=== PATIENT | female | born 1975 | race Caucasian/White ===

== ENCOUNTER 2024-10-28 09:59 | Emergency (ER) | payer BC ==
[~2024-10-28] VITALS: Ht 157.5 cm; Wt 49.9 kg
[2024-10-28 10:00] VITALS: TEMP 97.3
[2024-10-28 10:56] LABS: BASOPHILS % 1.0 % (0.0-1.0); EOSINOPHILS % 0.2 % (0.0-6.0); LYMPHOCYTES % 18.7 % (18.0-39.1); MONOCYTES % 7.6 % (4.4-11.3); NEUTROPHILS % 72.3 % (38.7-80.0); RED CELL DISTRIBUTION WIDTH 12.4 % (11.7-14.4)
[2024-10-28 11:25] LABS: EST GLOMERULAR FILTRATION RATE 85.0 ML/MIN (>=60)
[2024-10-28 12:51] VITALS: PULSE 55; RESP 18
[2024-10-28 13:16] VITALS: BP 146/83; PULSE 73; RESP 18; TEMP 98.4; O2SAT 99
== END 2024-10-28 13:18 | disposition home or self-care (01) ==
LOC: ER 10:06
DX: R55 Syncope and collapse (principal); R03.0 Elevated blood-pressure reading, without diagnosis of hypertension; F41.9 Anxiety disorder, unspecified; F17.210 Nicotine dependence, cigarettes, uncomplicated
CPT/HCPCS: 36415; 71045; 80053; 82550; 83880; 84484; 85025; 93005; 99284